=== PATIENT | male | born 1980 | race African-American/Black ===

== ENCOUNTER 2018-05-12 01:51 | Emergency (ER) | payer BC, SELFPAY ==
[2018-05-12] MEDS ORDERED: Adacel (T-DAP) 0.5 ML SYRINGE ONE (02:14)
--- NOTE | 2018-05-12 08:28 | RAD ---
RIGHT INDEX FINGER 3 VIEWS: Date: 05/12/18 INDICATION: Foreign body. FINDINGS: There is a small radiopaque foreign body seen along the radial and palmar aspects of the distal aspec t of the right index finger just subjacent to the distal tuft. There appears to be an overlying lacer ation near the site. IMPRESSION: Small radiopaque density seen within the soft tissues adjacent to the distal tuft of the left finger, likely adjacent to the small laceration. POS: BH
--- NOTE | 2018-05-12 08:34 | RAD ---
RIGHT FINGER 3 VIEWS: Date: 05/12/18 INDICATION: History of laceration with concern for foreign body. FINDINGS/IMPRESSION: The previously seen foreign body persists within the base of the laceration adjacent to the distal tu ft when compared to the prior dated 05/12/18 at 0306 hours. POS: BH
== END 2018-05-12 05:09 | disposition home or self-care (01) ==
LOC: ERS 01:51
DX: S61.320A Laceration with foreign body of right index finger with damage to nail, initial encounter (principal); Z87.891 Personal history of nicotine dependence; W31.9XXA Contact with unspecified machinery, initial encounter; Y99.0 Civilian activity done for income or pay
CPT/HCPCS: 90471; 90715

== ENCOUNTER 2019-03-01 19:14 | Emergency (ER) | payer SELFPAY ==
[2019-03-01] MEDS ORDERED: Lidocaine 1% (PF) 30 ML VIAL ONE (19:40)
[2019-03-01] MEDS ORDERED: Lidocaine 1% w/Epinephrine 1:100K 20 ML VIAL ONE (19:43)
== END 2019-03-01 20:17 | disposition home or self-care (01) ==
LOC: ERS 19:14
DX: S01.112A Laceration without foreign body of left eyelid and periocular area, initial encounter (principal); S01.81XA Laceration without foreign body of other part of head, initial encounter; V89.2XXA Person injured in unspecified motor-vehicle accident, traffic, initial encounter
CPT/HCPCS: 12011; J2001

== ENCOUNTER 2019-03-09 09:09 | Emergency (ER) | payer SELFPAY | END 2019-03-09 09:31 | disposition home or self-care (01) | LOC: ERS 09:09 | DX: S01.112D Laceration without foreign body of left eyelid and periocular area, subsequent encounter (principal); V89.2XXD Person injured in unspecified motor-vehicle accident, traffic, subsequent encounter ==

== ENCOUNTER 2020-06-09 12:17 | Emergency (ER) | END 2020-06-09 14:25 | disposition home or self-care (01) | LOC: ERS 12:17 | DX: M79.644 Pain in right finger(s) (principal); Z87.891 Personal history of nicotine dependence | CPT/HCPCS: 99281 ==

== ENCOUNTER 2020-06-12 12:05 | Emergency (ER) | payer BC, SELFPAY | END 2020-06-12 14:16 | disposition home or self-care (01) | LOC: ERS 12:05 | DX: T33.531A Superficial frostbite of right finger(s), initial encounter (principal); Z87.891 Personal history of nicotine dependence; X31.XXXA Exposure to excessive natural cold, initial encounter | CPT/HCPCS: 99283 ==

== ENCOUNTER 2021-11-28 10:42 | Emergency (ER) | payer SELFPAY | END 2021-11-28 14:05 | disposition home or self-care (01) | LOC: ERS 10:42 | DX: M79.10 Myalgia, unspecified site (principal); Z20.822 Contact with and (suspected) exposure to COVID-19 | CPT/HCPCS: 87804; 99283; U0003; U0005 ==

== ENCOUNTER 2023-02-25 09:30 | Emergency (ER) | payer BC, SELFPAY | END 2023-02-25 09:51 | disposition home or self-care (01) | LOC: ERS 09:30 | DX: R21 Rash and other nonspecific skin eruption (principal); Z87.891 Personal history of nicotine dependence | CPT/HCPCS: 99282 ==